=== PATIENT | female | born 2000 | race African-American/Black ===

== ENCOUNTER 2023-05-05 07:03 | Emergency (ER) | payer OTHER ==
[~2023-05-05] VITALS: Ht 157.5 cm; Wt 87.4 kg
[2023-05-05 07:05] VITALS: BP 140/81; TEMP 97.2; O2SAT 97
[2023-05-05] MEDS ORDERED: FAMOTIDINE 20 MG TAB PO ONE (08:00)
[2023-05-05] MEDS ORDERED: ONDANSETRON 4MG ORAL DISINTEGRATING TAB PO ONE (08:00)
[2023-05-05] MEDS ORDERED: ONDA4TAB6 PO (10:30)
[2023-05-05] MEDS ORDERED: FAMO20TA PO (10:30)
== END 2023-05-05 10:44 | disposition home or self-care (01) ==
LOC: M ED 07:03
DX: O21.2 Late vomiting of pregnancy (principal); Z3A.34 34 weeks gestation of pregnancy; Z79.83 Long term (current) use of bisphosphonates; Z79.899 Other long term (current) drug therapy